=== PATIENT | male | born 2000 | race African-American/Black ===

== ENCOUNTER 2019-03-31 04:51 | Emergency (ER) | payer SELFPAY ==
[2019-03-31] MEDS ORDERED: Azithromycin 250 MG TAB ONE (05:23)
[2019-03-31] MEDS ORDERED: cefTRIAXone\\ROCEPHIN 250 MG VIAL ONE (05:23)
[2019-03-31] MEDS ORDERED: Sterile Water 10 ML ONE (05:23)
== END 2019-03-31 05:44 | disposition home or self-care (01) ==
LOC: ERS 04:51
DX: R36.9 Urethral discharge, unspecified (principal)
CPT/HCPCS: 96372; 99283; J0696

== ENCOUNTER 2020-03-23 00:23 | Emergency (ER) | payer SELFPAY ==
--- NOTE | 2020-03-23 08:14 | RAD ---
RIGHT HAND 3 VIEWS: Date: 03/23/2020 INDICATION: History of right hand injury. COMPARISON: None. FINDINGS: No acute fracture or subluxation is evident. No radiopaque foreign body is noted. Small ossicle is se en adjacent to the ulnar styloid. IMPRESSION: No acute osseous abnormality. POS: [facility]
== END 2020-03-23 01:42 | disposition home or self-care (01) ==
LOC: ERS 00:23
DX: S60.121A Contusion of right index finger with damage to nail, initial encounter (principal); F17.290 Nicotine dependence, other tobacco product, uncomplicated; W23.0XXA Caught, crushed, jammed, or pinched between moving objects, initial encounter

== ENCOUNTER 2020-11-12 03:02 | Emergency (ER) | payer SELFPAY | END 2020-11-12 04:04 | LOC: ERS 03:02 | DX: R40.0 Somnolence (principal); F17.290 Nicotine dependence, other tobacco product, uncomplicated | CPT/HCPCS: 99283 ==

== ENCOUNTER 2020-12-21 22:12 | Emergency (ER) | payer SELFPAY ==
[2020-12-21] MEDS ORDERED: Fentanyl 100 MCG/2 ML VIAL ONE (23:15)
[2020-12-21] MEDS ORDERED: Boostrix 0.5 ML (Tdap) VIAL ONE (23:15)
[2020-12-22] MEDS ORDERED: Ketorolac Tromethamine 30 MG/ML VIAL ONE (01:31)
[2020-12-22] MEDS ORDERED: Clindamycin 150 MG CAP PO SCH (02:15)
== END 2020-12-22 02:15 | disposition home or self-care (01) ==
LOC: ERS 22:12
DX: S02.609A Fracture of mandible, unspecified, initial encounter for closed fracture (principal); S02.5XXA Fracture of tooth (traumatic), initial encounter for closed fracture; Y04.8XXA Assault by other bodily force, initial encounter; Z23 Encounter for immunization
CPT/HCPCS: 70450; 70486; 72125; 90471; 90715; 96374; 96375; J1885; J3010